=== PATIENT | male | born 1975 | race Caucasian/White ===

== ENCOUNTER 2019-05-18 00:10 | Emergency (ER) | payer SELFPAY ==
[2019-05-18] MEDS ORDERED: DIPH/PERTUSS(ACELL)/TETANUS VAC/PF 0.5 ML SYR (>=10YO) IM ONE (00:47)
--- NOTE | 2019-05-18 00:47 | ER Document Report ---
ED Medical Screen (RME) - General Chief Complaint: Laceration Stated Complaint: LACERATION LEFT THUMB Time Seen by Provider: 05/18/19 00:46 Notes: 44-year-old male presents with laceration to the left thumb that occurred approximately 1.5 hours before he got here. Patient states he bought his father a knife that is spring-loaded and he came in the mail today. Patient states he opened it and "filleted" his thumb. Patient states his tetanus is not up-to-date. Actively bleeding. Approximately 3 to 4 cm laceration around thumb without involvement of nail bed. I have greeted and performed a rapid initial assessment of this patient. A c omprehensive ED assessment and evaluation of the patient, analysis of test results and completion of the medical decision making process with be conducted by additional ED providers. Physical Exam - Vital signs Vitals: Temp Pulse Resp BP Pulse Ox 98.1 F 73 16 137/100 H 97 05/18/19 00:20 05/18/19 00:20 05/18/19 00:20 05/18/19 00:20 05/18/19 00:20 Course - Vital Signs Vital signs: Temp Pulse Resp BP Pulse Ox 98.1 F 73 16 137/100 H 97 05/18/19 00:20 05/18/19 00:20 05/18/19 00:20 05/18/19 00:20 05/18/19 00:20
[2019-05-18] MEDS ORDERED: HYDROCODONE/ACETAMINOPHEN 5-325 MG TABLET PO ONE (00:53)
--- NOTE | 2019-05-18 02:05 | RADIOLOGY REPORT (SQ) ---
CLINICAL HISTORY: left thumb laceration COMPARISON: None. TECHNIQUE: XR HAND 3 OR MORE VIEWS 05/18/2019 12:54 AM PATHOLOGIST FINDINGS: There is no fracture. Joint spaces are preserved. There is soft tissue swelling involving the first digit. IMPRESSION: No acute osseous findings.
[2019-05-18] MEDS ORDERED: LIDOCAINE 1% INJ-PF (10 MG/ML) 30 ML SDV INJ ONE (04:01)
[2019-05-18] MEDS ORDERED: OXYCODONE-ACETAMINOPHEN 5-325 MG TABLET PO ONE (04:02)
[2019-05-18] MEDS ORDERED: PROMETHAZINE HCL 25 MG TABLET PO ONE (04:02)
--- NOTE | 2019-05-18 04:03 | ER Document Report ---
ED Wound - General Chief Complaint: Laceration Stated Complaint: LACERATION LEFT THUMB Time Seen by Provider: 05/18/19 00:46 Notes: Patient is a 44-year-old male that comes to the emergency department for chief complaint of laceration to his left thumb. He states he is right-handed, he was opening a package with a brand-new knife and accidentally sliced himself when he popped open the package. He denies any other complaints. His tetanus is not up-to-date within 5 years. He denies diabetes. - Related Data Allergies/Adverse Reactions: ondansetron [From Zofran] Allergy (Verified 05/18/19 00:51) Penicillins Allergy (Verified 05/18/19 00:51) Past Medical History - General Information source: Patient - Social History Smoking Status: Current Every Day Smoker Frequency of alcohol use: Occasional Drug Abuse: None Lives with: Family Family History: Reviewed & Not Pertinent Patient has suicidal ideation: No Patient has homicidal ideation: No Pulmonary Medical History: Reports: Hx COPD Surgical Hx: Negative - Immunizations Immunizations up to date: No Hx Diphtheria, Pertussis, Tetanus Vaccination: Yes Review of Systems - Review of Systems Constitutional: No symptoms reported EENT: No symptoms reported Cardiovascular: No symptoms reported Respiratory: No symptoms reported Gastrointestinal: No symptoms reported Genitourinary: No symptoms reported Male Genitourinary: No symptoms reported Musculoskeletal: See HPI Skin: See HPI Hematologic/Lymphatic: No symptoms reported Neurological/Psychological: No symptoms reported Physical Exam - Vital signs Vitals: Temp Pulse Resp BP Pulse Ox 98.1 F 73 16 137/100 H 97 05/18/19 00:20 05/18/19 00:20 05/18/19 00:20 05/18/19 00:20 05/18/19 00:20 - Notes Notes: GENERAL: Alert, interacts well. No acute distress. HEAD: Normocephalic, atraumatic. EYES: Pupils equal, round, and reactive to light. Extraocular movements intact. ENT: Oral mucosa moist, tongue midline. Oropharynx unremarkable. Airway patent. LUNGS: Clear to auscultation bilaterally, no wheezes, rales, or rhonchi. No respiratory distress. HEART: Regular rate and rhythm. No murmur ABDOMEN: Soft, non-tender. Non-distended. EXTREMITIES: There is a 2.5 cm laceration over the palmar aspect of the distal left thumb. This is not include the nail, it is a flap laceration which is semi-Lenear, subcutaneous tissue can be seen. There is no large vessel bleeding, sensation is still intact around the wound, the wound does not cover any area that would suggest tendon injury. No visible tendon or bone. No heavy bleeding. Normal exam of the upper extremity otherwise. BACK: no cervical, thoracic, lumbar midline tenderness. No saddle anesthesia, normal distal neurovascular exam. NEUROLOGICAL: Alert and oriented x3. Normal speech. Cranial nerves II through X II grossly intact. SKIN: Warm, dry, normal turgor. No rashes or lesions noted. Course - Re-evaluation Re-evalutation: There is a fairly large laceration over the thumb pad of the left thumb. No concerning injury, does not appear to be involving the bone, x-ray is negative, no concerning deficits. Updated tetanus, irrigated very well before closure, discussed care, follow-up, return precautions. Patient states understanding and agreement. - Vital Signs Vital signs: Temp Pulse Resp BP Pulse Ox 97.4 F 66 15 120/82 98 05/18/19 05:20 05/18/19 05:20 05/18/19 05:20 05/18/19 05:20 05/18/19 05:20 Procedures - Laceration/Wound Repair Left thumb Wound length (cm): 2.5 Wound's Depth, Shape: Linear - Semi-linear Anesthetic type: 1% Lidocaine Volume Anesthetic (mLs): 5 Wound explored: Clean, No foreign body removed Irrigated w/ Saline (mLs): 100 Wound Repaired With: Sutures Suture Size/Type: 4:0, Nylon Number of Sutures: 8 Layer Closure?: No Post-procedure wound care: Sterile dressing applied Post-procedure NV exam normal: Yes Complications: No Discharge - Discharge Clinical Impression: Laceration of left thumb Qualifiers: Encounter type: initial encounter Damage to nail status: without damage Foreign body presence: without foreign body Qualified Code(s): S61.012A - Laceration without foreign body of left thumb without damage to nail, initial encounter Condition: Stable Disposition: HOME, SELF-CARE Additional Instructions: The x-ray is normal. Keep area clean, clean with soap and water, dab dry, apply topical antibiotic to the area. Avoid soaking or scrubbing. Take Tylenol and ibuprofen for pain if needed. Follow-up with primary care. Sutures need to be removed in 7 days. Return for any signs of infection including developing pain, swelling, discolored drainage, fever, or any other concerning symptoms.
[2019-05-18 05:22] VITALS: BP 120/82
== END 2019-05-18 05:23 | disposition home or self-care (01) ==
LOC: ER 00:10
PROC: 0HQGXZZ Repair Left Hand Skin, External Approach (ICD-10-PCS; principal; 2019-05-18)
DX: S61.012A Laceration without foreign body of left thumb without damage to nail, initial encounter (principal); W26.0XXA Contact with knife, initial encounter; F17.200 Nicotine dependence, unspecified, uncomplicated; Z88.0 Allergy status to penicillin; Z88.8 Allergy status to other drugs, medicaments and biological substances
CPT/HCPCS: 99283; 90471; 73130; 90715; 12001; J3490

== ENCOUNTER 2020-02-11 20:14 | Emergency (ER) | payer SELFPAY ==
[2020-02-11] MEDS ORDERED: KETOROLAC TROMETHAMINE INJ/PF 30 MG/1 ML SDV IV ONE (21:24)
--- NOTE | 2020-02-11 21:26 | ER Document Report ---
ED Medical Screen (RME) - General Chief Complaint: Abdominal Pain Stated Complaint: LOWER QUADRANT PAIN Time Seen by Provider: 02/11/20 21:18 - HPI Notes: 02/11/20 21:25 44-year-old male to the emergency department with complaints of right-sided abdominal pain has been getting worse for the past 2 days. He states that initially it started above his bellybutton and now it is moved over to the side and a little in the right lower side. He states that he still has an appendix. He admits to nausea and vomiting. [facility]. They gave him fentanyl which did help his pain. He states however that his pain is starting to come back. He denies any fevers or chills. Does admit to decreased appetite. Medical screening exam illustrates tenderness to palpation to the periumbilical area and right upper quadrant with some mild right lower quadrant tenderness to palpation as well. I performed a brief medical screening exam on the patient determined that the patient needs further evaluation and management by main side provider. I have placed initial orders to help expedite care. - Related Data Allergies/Adverse Reactions: ondansetron [From Zofran] Allergy (Verified 05/18/19 00:51) Penicillins Allergy (Verified 05/18/19 00:51) Past Medical History Pulmonary Medical History: Reports: Hx COPD - Immunizations Immunizations up to date: No Hx Diphtheria, Pertussis, Tetanus Vaccination: Yes Physical Exam - Vital signs Vitals: Temp Pulse Resp BP Pulse Ox 98.3 F 96 20 124/76 97 02/11/20 20:29 02/11/20 20:29 02/11/20 20:29 02/11/20 20:29 02/11/20 20:29 Course - Vital Signs Vital signs: Temp Pulse Resp BP Pulse Ox 98.3 F 96 20 124/76 97 02/11/20 20:29 02/11/20 20:29 02/11/20 20:29 02/11/20 20:29 02/11/20 20:29
[2020-02-11 22:06] LABS: ABSOLUTE BASOPHILS # (AUTO) 0.1 10^3/uL (0.0-0.2); ABSOLUTE EOSINOPHILS # (AUTO) 0.4 10^3/uL (0.0-0.6); HEMOGLOBIN 16.4 g/dL (13.5-17.0); TOTAL CELLS COUNTED % (AUTO) 100 %
[2020-02-11 22:11] LABS: ABSOLUTE NEUT (AUTO) 2.7 10^3/uL (1.7-8.2); APPEARANCE,URINE CLEAR; BILIRUBIN,URINE NEGATIVE (NEGATIVE); COLOR,URINE YELLOW; GLUCOSE, URINE NEGATIVE (NEGATIVE); KETONES,URINE NEGATIVE (NEGATIVE); LEUKOCYTE ESTERASE,URINE NEGATIVE (NEGATIVE); NITRITE,URINE NEGATIVE (NEGATIVE); PROTEIN,URINE NEGATIVE (NEGATIVE); RED CELL DISTRIBUTION WIDTH 12.6 % (11.5-14.0); URINE SPECIFIC GRAVITY 1.005; UROBILINOGEN,URINE NEGATIVE mg/dL (<2.0)
[2020-02-11 22:19] LABS: ABSOLUTE LYMPHOCYTES (AUTO) 2.4 10^3/uL (0.5-4.7); ABSOLUTE MONOCYTES (AUTO) 0.7 10^3/uL (0.1-1.4); BASOPHILS % (AUTO) 1.3 % (0-2); HEMATOCRIT 47.9 % (37.9-51.0); LYMPHOCYTES % (AUTO) 38.3 % (13-45); MEAN CORPUSCULAR HGB CONC 34.3 g/dL (32.0-36.0); MEAN CORPUSCULAR VOLUME 93 fl (80-97); MONOCYTES % (AUTO) 11.8 % (3-13); PLATELET COUNT 276 10^3/uL (150-450); RED BLOOD COUNT 5.14 10^6/uL (4.35-5.55); SEGMENTED NEUTROPHILS % (AUTO) 42.6 % (42-78); WHITE BLOOD COUNT 6.3 10^3/uL (4.0-10.5)
[2020-02-11 22:31] LABS: ALKALINE PHOSPHATASE 95 U/L (38-126); ANION GAP 13 (5-19); ASPARTATE AMINO TRANSFERASE 232 U/L (17-59); BILIRUBIN,DIRECT 0.3 mg/dL (0.0-0.4); BILIRUBIN,TOTAL 0.4 mg/dL (0.2-1.3); BLOOD UREA NITROGEN 7 mg/dL (7-20); CALCIUM 10.2 mg/dL (8.4-10.2); CARBON DIOXIDE 27 mmol/L (22-30); CHLORIDE 101 mmol/L (98-107); GLUCOSE 86 mg/dL (75-110); POTASSIUM 5.6 mmol/L (3.6-5.0); TOTAL PROTEIN 7.9 g/dL (6.3-8.2)
--- NOTE | 2020-02-11 22:45 | RADIOLOGY REPORT (SQ) ---
EXAM DESCRIPTION: CT of the abdomen and pelvis with IV contrast CLINICAL HISTORY: 44 years Male right sided abd pain COMPARISON: None. TECHNIQUE: Contiguous axial images obtained through the abdomen and pelvis following IV contrast. 100 mL Omnipaque 350 IV. Reformatted images obtained. This exam was performed according to our department optimization program which includes automated exposure control, adjustment of the mA and/or kv according to patient size and/or use of iterative reconstruction technique. FINDINGS: Visualized lung bases are clear. The liver appears borderline enlarged with suggestion of hepatic steatosis. The spleen and pancreas appear unremarkable. No adrenal masses. The kidneys appear unremarkable. No hydronephrosis. Urinary bladder is partially decompressed, limiting evaluation. However, there is suggestion of circumferential urinary bladder wall thickening. The gallbladder is visualized. No aneurysmal dilatation of the aorta. No bowel obstruction. The appendix is unremarkable. No significant free fluid noted. No suspicious lytic or blastic osseous lesions are identified. IMPRESSION: 1. Potential circumferential thickening of the urinary bladder wall. Correlate with urinalysis. Otherwise, no acute intra-abdominal process is identified. 2. Borderline enlargement of the liver with suggestion of hepatic steatosis.
--- NOTE | 2020-02-12 00:45 | RADIOLOGY REPORT (SQ) ---
EXAM DESCRIPTION: Ultrasound abdomen Limited CLINICAL HISTORY: 44 years Male RUQ abd pain, elevated LFTs TECHNIQUE: Right upper quadrant ultrasound was performed. COMPARISON: CT abdomen and pelvis performed the same day. FINDINGS: Pancreas: Visualized portions are unremarkable. Liver: Measures up to 16.9 cm Portal venous flow is hepatopedal, normal. Gallbladder: normal with no gallstones or sonographic evidence for acute cholecystitis. No pericholecystic fluid. No sonographic Scott's sign. Common bile duct: 1.4 mm. Right kidney: Measures 12.1 cm. No hydronephrosis. IMPRESSION: 1. Normal right upper quadrant ultrasound.
--- NOTE | 2020-02-12 04:29 | ER Document Report ---
ED General - General Chief Complaint: Abdominal Pain Stated Complaint: LOWER QUADRANT PAIN Time Seen by Provider: 02/11/20 21:18 Primary Care Provider: [facility] [Provider Group] - Follow up as needed - [facility] Notes: 44-year-old male presents with abdominal pain. Patient states his "because I drink too much". He has been having right upper quadrant and epigastric abdominal pain for the past 2 days. Dull and crampy. No vomiting or diarrhea. He states he drinks 4-5 beers daily. He does not take Tylenol, occasionally takes ibuprofen. - Related Data Allergies/Adverse Reactions: ondansetron [From Zofran] Allergy (Verified 05/18/19 00:51) Penicillins Allergy (Verified 05/18/19 00:51) Past Medical History - General Information source: Patient - Social History Smoking Status: Current Every Day Smoker Frequency of alcohol use: Social Drug Abuse: Marijuana Family History: Reviewed & Not Pertinent Pulmonary Medical History: Reports: Hx COPD - Immunizations Immunizations up to date: No Hx Diphtheria, Pertussis, Tetanus Vaccination: Yes Review of Systems - Review of Systems Constitutional: denies: Fever EENT: No symptoms reported Cardiovascular: denies: Chest pain Respiratory: denies: Short of breath Gastrointestinal: Abdominal pain. denies: Vomiting Genitourinary: denies: Dysuria Male Genitourinary: No symptoms reported Musculoskeletal: No symptoms reported Skin: No symptoms reported Hematologic/Lymphatic: No symptoms reported Neurological/Psychological: No symptoms reported Physical Exam - Vital signs Vitals: Temp Pulse Resp BP Pulse Ox 98.3 F 96 20 124/76 97 02/11/20 20:29 02/11/20 20:29 02/11/20 20:29 02/11/20 20:29 02/11/20 20:29 - General General appearance: Appears well, Alert In distress: None - HEENT Head: Normocephalic, Atraumatic Eyes: No: Scleral icterus Extraocular movements intact: Yes Pupils: PERRL - Respiratory Breath sounds: Normal - Cardiovascular Rhythm: Regular Heart sounds: Normal auscultation - Abdominal Inspection: No: Obese Distension: No distension Bowel sounds: Normal Tenderness: Tender - Mild, right upper quadrant - Extremities General upper extremity: Normal ROM General lower extremity: Normal ROM - Neurological Neuro grossly intact: Yes Cognition: Normal Orientation: AAOx4 - Psychological Associated symptoms: Normal affect - Skin Skin Temperature: Warm Course - Re-evaluation Re-evalutation: 44-year-old male with right upper quadrant/epigastric pain ongoing for 2 days. He has a history of heavy alcohol use. No vomiting. He is well-appearing on exam, nontoxic, vital signs stable. He does have some mild tenderness to these areas. He had a laboratory and imaging evaluation via the triage process. No leukocytosis or left shift. No acute anemia. Electrolytes okay. Creatinine within normal limits. Transaminitis. Lipase within reference range. Right upper quadrant ultrasound is negative for cholelithiasis or cholecystitis, no dilation of CBD. CT abdomen negative for appendicitis, has some enlargement of the liver, has some thickening of the bladder wall. Patient denies UTI symptoms and urine is not suggestive of infection. Given that cholecystitis and pancreatitis ruled out, suspect that his symptoms are due to alcoholic gastritis with associated hepatitis. Patient was counseled on alcohol cessation. He was administered Pepcid and a GI cocktail. He was advised to start daily use of antacid. Return precautions given, patient stable at time of discharge. He was given follow-up for [facility]. - Vital Signs Vital signs: Temp Pulse Resp BP Pulse Ox 98.4 F 84 16 154/92 H 98 02/12/20 05:27 02/12/20 05:27 02/12/20 05:27 02/12/20 05:27 02/12/20 05:27 - Laboratory Result Diagrams: 02/11/20 21:50 02/11/20 21:50 Laboratory results interpreted by me: 02/11/20 02/11/20 21:50 21:50 Potassium 5.6 H AST 232 H ALT 273 H Acetaminophen < 10 L - Diagnostic Test Radiology reviewed: Image reviewed, Reports reviewed Discharge - Discharge Clinical Impression: Elevated liver enzymes Alcoholic gastritis Qualifiers: Chronicity: acute Gastritis bleeding: without bleeding Qualified Code(s): K29.20 - Alcoholic gastritis without bleeding Disposition: HOME, SELF-CARE Additional Instructions: Continue daily use of antacid such as Pepcid, anything [id number] is fine. Please try to limit your alcohol use. Please establish with a primary care doctor, have provided information for [facility]. You will need your liver function tests repeated. Return to the emergency department for any concerning worsening symptoms. Referrals: [facility] [Provider Group] - Follow up as needed
[2020-02-12] MEDS ORDERED: LIDOCAINE 2% VISCOUS SOLN 15 ML UDCUP PO ONE (04:40)
[2020-02-12] MEDS ORDERED: FAMOTIDINE INJ/PF 20 MG/2 ML SDV IV ONE (04:40)
[2020-02-12] MEDS ORDERED: MAG HYDROX/AL HYDROX/SIMETH SUSP 30 ML UDCUP PO ONE (04:40)
[2020-02-12 05:28] VITALS: BP 154/92
== END 2020-02-12 05:27 | disposition home or self-care (01) ==
LOC: ER 20:14
DX: K29.20 Alcoholic gastritis without bleeding (principal); R16.0 Hepatomegaly, not elsewhere classified; R74.8 Abnormal levels of other serum enzymes; F17.200 Nicotine dependence, unspecified, uncomplicated; F12.10 Cannabis abuse, uncomplicated; J44.9 Chronic obstructive pulmonary disease, unspecified; Z88.8 Allergy status to other drugs, medicaments and biological substances; Z88.0 Allergy status to penicillin
CPT/HCPCS: 99285; 96374; 96375; 36415; 83690; 80307; 85025; 80053; 81001; 76705; 74177; J3490; J1885; S0028